=== PATIENT | male | born 1980 | race Caucasian/White ===

== ENCOUNTER 2019-02-11 23:20 | Emergency (ER) | payer SELFPAY ==
[~2019-02-11] VITALS: Ht 167.6 cm; Wt 94.3 kg
[2019-02-11 23:35] VITALS: BP 115/61; Ht 167.6 cm; Wt 94.3 kg
== END 2019-02-12 01:12 | disposition left against medical advice (07) ==
LOC: ED 23:20
DX: Z53.21 Procedure and treatment not carried out due to patient leaving prior to being seen by health care provider (principal)

== ENCOUNTER 2020-02-04 04:38 | Emergency (ER) | payer SELFPAY | END 2020-02-04 05:33 | disposition left against medical advice (07) | LOC: ED 04:38 | DX: Z53.21 Procedure and treatment not carried out due to patient leaving prior to being seen by health care provider (principal) ==